=== PATIENT | male | born 1955 | race Caucasian/White ===

== ENCOUNTER 2022-12-30 10:48 | Emergency (ER) | payer BC, MEDICARE ==
[2022-12-30] MEDS: Diphtheria,Pertussis(Acell),Tetanus Vaccine 0.5 ML Syringe IM ONE (11:23)
[2022-12-30] MEDS: Lidocaine 1% 5 ML VIAL INJECT ONE (11:23)
== END 2022-12-30 12:20 | disposition home or self-care (01) ==
LOC: MERGE 10:48 → KA.ED 10:48
DX: S61.211A Laceration without foreign body of left index finger without damage to nail, initial encounter (principal); Z23 Encounter for immunization; Z79.899 Other long term (current) drug therapy; W29.8XXA Contact with other powered hand tools and household machinery, initial encounter
CPT/HCPCS: 12001; 90471; 90715; 99282-25; 99283; J3490